=== PATIENT | male | born 1985 | race American Indian/Alaskan Native ===

== ENCOUNTER 2018-02-17 09:22 | Emergency (ER) | payer BC ==
[2018-02-17] MEDS ORDERED: MOTRIN PO ONE ×3 (10:18→16:54)
--- NOTE | 2018-02-17 12:41 | Emergency Department Report ---
ED Male HPI - General Chief complaint: Urogenital-Male Stated complaint: SCROTUM PAIN Time Seen by Provider: 02/17/18 12:11 Source: patient Mode of arrival: Ambulatory Limitations: No Limitations - History of Present Illness Initial comments: This is a 32-year-old male nontoxic, well nourished in appearance, no acute signs of distress presents to the ED with c/o of right testicular pain and swelling x4 days. Patient stated he had a little pimple that he tried to pop and became more swelling and pain ever since then. Patient denies any pus, drainage, fever, chills, headache, nausea, vomiting, chest pain, shortness of breathe, numbness or tingling. Patient denies any urinary symptoms or penile discharge. Patient states allergies to PCN. Denies PMH. MD Complaint: testicle pain, testicle swelling -: days(s) (4) Location: right testicle, right inguinal region Radiation: none Severity: mild Severity scale (0 -10): 8 Quality: aching Consistency: constant Improves with: none Worsens with: none swelling. denies: discharge, mass, rash, urinary retention, blood in urine, dysuria, fever, nausea/vomiting, incontinence - Related Data Allergies Allergy/AdvReac Type Severity Reaction Status Date / Time Penicillins Allergy Swelling Verified 02/17/18 10:13 ED Review of Systems ROS: Stated complaint: SCROTUM PAIN Other details as noted in HPI Constitutional: denies: chills, fever Eyes: denies: eye pain, eye discharge, vision change ENT: denies: ear pain, throat pain Respiratory: denies: cough, shortness of breath, wheezing Cardiovascular: denies: chest pain, palpitations Endocrine: no symptoms reported Gastrointestinal: denies: abdominal pain, nausea, diarrhea Genitourinary: testicular pain. denies: urgency, dysuria Musculoskeletal: denies: back pain, joint swelling, arthralgia Skin: denies: rash, lesions Neurological: denies: headache, weakness, paresthesias Psychiatric: denies: anxiety, depression Hematological/Lymphatic: denies: easy bleeding, easy bruising ED Past Medical Hx - Past Medical History Previous Medical History?: No - Surgical History Past Surgical History?: No - Social History Smoking Status: Current Every Day Smoker Substance Use Type: Alcohol ED Physical Exam - General Limitations: No Limitations General appearance: alert, in no apparent distress - Head Head exam: Present: atraumatic, normocephalic - Eye Eye exam: Present: normal appearance Pupils: Present: normal accommodation - ENT ENT exam: Present: normal exam, mucous membranes moist - Neck Neck exam: Present: normal inspection, full ROM. Absent: tenderness, meningismus, lymphadenopathy - Respiratory Respiratory exam: Present: normal lung sounds bilaterally. Absent: respiratory distress, wheezes, rales, rhonchi, stridor - Cardiovascular Cardiovascular Exam: Present: regular rate, normal rhythm, normal heart sounds. Absent: systolic murmur, diastolic murmur, rubs, gallop - GI/Abdominal GI/Abdominal exam: Present: soft, normal bowel sounds - Rectal Rectal exam: Present: deferred - exam: Present: testicular tenderness, scrotal swelling. Absent: urethral discharge, vertical testicular lie External exam: Present: normal external exam. Absent: erythema, swelling, lesions, lacerations, ecchymosis, bleeding - Extremities Exam Extremities exam: Present: normal inspection, full ROM, normal capillary refill - Back Exam Back exam: Present: normal inspection, full ROM - Neurological Exam Neurological exam: Present: alert, oriented X3, normal gait - Psychiatric Psychiatric exam: Present: normal affect, normal mood - Skin Skin exam: Present: warm, dry, intact, normal color. Absent: rash ED Course Vital Signs 02/17/18 02/17/18 02/17/18 10:13 18:10 18:30 Temperature 98.4 F Pulse Rate 108 H 86 Respiratory 17 18 18 Rate Blood Pressure 127/82 Blood Pressure 111/63 [Left] O2 Sat by Pulse 98 99 98 Oximetry - Reevaluation(s) Reevaluation #1: 02/17/18 13:06 Patient is speaking in full sentences with no signs of distress noted. - Consultations Consultation #1: 02/17/18 16:30 Patient has been consulted with Dr. Horan about patient history, physical exam, and labs/imaging studies and agrees to the ED plan of care. Consultation #2: 02/17/18 18:33 Dr. Young Urologist was consulted about patient history, physical exam, and CT results and stated to admit patient under hospitalist and he will follow-up. Consultation #3: 02/17/18 18:34 Dr. Posey was consulted and accepts patient to his services. 02/17/18 19:34 Dr. Young examined patient and stated to discharge with prescriptions that he gave. No I/D performed as per Dr. Young. ED Medical Decision Making - Lab Data Result diagrams: 02/17/18 12:54 02/17/18 12:54 - Medical Decision Making This is a 32-year-old male that presents with groin abscess. Patient is stable and was examined by me. There is induration and flutance. US and CT obtained and dictated by the radiologist. Dr. Young has been consulted. Dr. Posey accepts patient to his services. Patient was given Clinda 900 mg IV. Patient was put on NPO, as per Dr. Young request. Labs obtained. At time of admission , the patient does not seem toxic or ill in appearance. No acute signs of distress noted. Patient agrees to admission treatment plan of care. No further questions noted by the patient. Dr. Posey requested for bridge orders to surgical floor and Clinda 600mg q8h. Dr. Young came to exam patient and stated to give patient 80 mg of Gentamicin and to discharge patient. Dr. Young gave patient prescriptions and discharge patient instructions. Critical care attestation.: If time is entered above; I have spent that time in minutes in the direct care of this critically ill patient, excluding procedure time. ED Disposition Clinical Impression: Groin abscess Disposition: DC-01 TO HOME OR SELFCARE Is pt being admited?: No Does the pt Need Aspirin: No Condition: Stable Instructions: Abscess (ED), Tramadol (By mouth) Additional Instructions: Follow-up with Dr. Young as directed to your by him in the ED or if symptoms worsen and continue return to emergency room as soon as possible. Referrals: PRIMARY CAREMD [Primary Care Provider] - 3-5 Days YAEL YOUNG MD [Staff Physician] - 3-5 Days [facility] [Outside] - 3-5 Days Forms: Work/School Release Form(ED)
[2018-02-17 13:48] LABS: Basophils # (Auto) 0.1 K/mm3 (0.0-0.1); Basophils % (Auto) 0.6 % (0.0-1.8); Eosinophils # (Auto) 0.1 K/mm3 (0.0-0.4); Hematocrit 43.4 % (35.5-45.6); Hemoglobin 14.3 gm/dl (11.8-15.2); Lymphocytes # (Auto) 2.6 K/mm3 (1.2-5.4); Lymphocytes % (Auto) 23.4 % (13.4-35.0); Mean Corpuscular HGB Conc 33 % (32-34); Mean Corpuscular Hemoglobin 31 pg (28-32); Mean Corpuscular Volume 93 fl (84-94); Monocytes # (Auto) 1.2 K/mm3 (0.0-0.8); Monocytes % (Auto) 10.3 % (0.0-7.3); Platelet Count 233 K/mm3 (140-440); Red Blood Count 4.68 M/mm3 (3.65-5.03); Red Cell Distribution Width 12.8 % (13.2-15.2)
[2018-02-17 14:02] LABS: BUN/Creatinine Ratio 11; Blood Urea Nitrogen 9 mg/dL (9-20); Calcium 9.8 mg/dL (8.4-10.2); Hemolysis Index 25
[2018-02-17 15:42] LABS: Bilirubin,Urine NEG (Negative); Blood,Urine NEG (Negative); Calcium Oxalate Crystals,Urine 1+; Color,Urine Yellow (Yellow); Mucus,Urine 2+ /HPF; Protein,Urine <15 mg/dL mg/dL (Negative)
--- NOTE | 2018-02-17 16:13 | Ultrasound Report ---
FINAL REPORT PROCEDURE: US TESTICULAR DOPPLER COMP TECHNIQUE: Real-time whitley-scale and color flow Doppler sonography in multiple planes of the scrotum, testicles, and epididymes was performed. Velocity spectral waveform analysis Doppler imaging of the arterial inflow and venous outflow of the testicles was performed with image documentation. CPT 11860 and 61663 HISTORY: testicular pain and swelling COMPARISON: No prior studies are available for comparison. FINDINGS: Echogenicity of the right and left testicles is homogeneous and appears normal. No masses are seen. Small to moderate hydrocele visualized on the left. No hydrocele on the right. Arterial and venous flow appears to be demonstrated in the right and left testicles. The epididymis are unremarkable. In the lateral aspect of the right scrotum there is a hypoechoic collection with linear bands of increased echogenicity. The appearance suggest this has fluid characteristics further suggesting a hematoma or abscess in the scrotal wall. This measures 2.7 x 1.5 centimeters and corresponds to the patient's palpable painful abnormality. The right testicle measures 4.4 x 2.9 x 3.6 centimeter. The left testicle measures 4.6 x 1.8 x 2.8 centimeters. IMPRESSION: Fluid collection seen lateral scrotal wall, the right side of the scrotum as described suggesting hematoma or abscess. Testicles are unremarkable. Small to moderate size hydrocele visualized on the left. No hydrocele visualized on the right.
[2018-02-17] MEDS ORDERED: CLEOCIN 900 MG/50 mL 900 MG/50 ML BAG IV ONE (16:28)
--- NOTE | 2018-02-17 17:47 | Cat Scan Report ---
FINAL REPORT PROCEDURE: CT PELVIS W CON TECHNIQUE: Computerized axial tomography of the pelvis was performed following the IV injection of iodinated nonionic contrast. HISTORY: testicular swelling COMPARISON: No prior studies are available for comparison. TECHNICAL QUALITY: Satisfactory. FINDINGS: Visualized bowel loops are unremarkable. No ascites is seen. The urinary bladder is unremarkable. Prostate gland does not appear to be enlarged. No pathologically enlarged lymph nodes are seen in the pelvis. Nonspecific subcentimeter lymph nodes are visualized. There is a mildly prominent nonspecific lymph node in the right groin measuring 2.2 x 1.3 centimeters. No acute or focal bony abnormalities are seen. No hernias are identified. Hydrocele appears to be present on the left. Scrotum is better visualized with the ultrasound. IMPRESSION: No acute abnormalities are identified in the pelvis. Hydrocele suspected on the left. This is better visualized with scrotal ultrasound. Nonspecific lymph nodes visualized as described.
--- NOTE | 2018-02-17 19:10 | Consultation ---
History of Present Illness - Reason for Consult Consult date: 02/17/18 - History of Present Illness This is a 32-year-old male nontoxic, well nourished in appearance, no acute signs of distress presents to the ED with c/o of right testicular pain and swelling x4 days. Patient stated he had a little pimple that he tried to pop and became more swelling and pain ever since then. allergies to PCN Denies PMH. circ bilat normal testes rt inflammatory process above testes CT pelvis - left hydrocele mitzy - small/moderate left hydrocele rt side wall fluid collection A/P rt epididymitis/ early abscess hydrate / cipro x 2 wks (on chart) ultram appt 1-2 weeks Medications and Allergies Allergies Allergy/AdvReac Type Severity Reaction Status Date / Time Penicillins Allergy Swelling Verified 02/17/18 10:13 Exam - Constitutional Vitals: Temp Pulse Resp BP Pulse Ox 98.4 F 86 18 111/63 98 02/17/18 10:13 02/17/18 18:10 02/17/18 18:30 02/17/18 18:10 02/17/18 18:30 Results - Labs CBC & Chem 7: 02/17/18 12:54 02/17/18 12:54 Labs: Abnormal lab results 02/17/18 02/17/18 Range/Units 12:54 12:54 WBC 11.2 H (4.5-11.0) K/mm3 RDW 12.8 L (13.2-15.2) % Sabine % (Auto) 10.3 H (0.0-7.3) % Sabine # 1.2 H (0.0-0.8) K/mm3 Chloride 97.1 L (98-107) mmol/L
[2018-02-17] MEDS ORDERED: GARAMYCIN/NS 80 MG/100 ML 100 ML IV ONE (19:29)
[2018-02-17] MEDS ORDERED: CLEOCIN 600 MG/50 mL 600 MG/50 ML BAG IV SCH (20:00)
[2018-02-17 21:46] VITALS: BP 122/81
== END 2018-02-17 21:30 | disposition home or self-care (01) ==
LOC: ED 09:22
DX: L02.214 Cutaneous abscess of groin (principal)
CPT/HCPCS: 36415; 72193; 80048; 81001; 82140; 85025; 93975; 96365; 96366; 96368; 99284; J1580; Q9967